=== PATIENT | male | born 1960 | race Caucasian/White ===

== ENCOUNTER 2023-04-24 15:57 | Emergency (ER) | payer OTHER ==
[~2023-04-24] VITALS: Ht 188 cm; Wt 108.9 kg
[2023-04-24 17:27] VITALS: BP 157/92; TEMP 98.4; O2SAT 98
== END 2023-04-24 17:28 | disposition home or self-care (01) ==
LOC: ER 15:57
DX: H61.22 Impacted cerumen, left ear (principal); E78.5 Hyperlipidemia, unspecified; E11.9 Type 2 diabetes mellitus without complications
CPT/HCPCS: A4663